=== PATIENT | male | born 1985 | race Caucasian/White ===

== ENCOUNTER 2017-03-19 07:00 | Day surgery (SDC) | payer OTHER ==
[2017-03-19] MEDS ORDERED: ceFAZolin 2 GM/50 ML 50 ML IV ONE (07:31)
[2017-03-19] MEDS ORDERED: LACTATED RINGERS 1,000 ML IV ONE ×2 (07:37→09:56)
[2017-03-19] MEDS ORDERED: LIDOCAINE 1%-EPI 1:100000 30 ML MDV SUBQ ONE ×2 (09:02)
[2017-03-19] MEDS ORDERED: BUPIVACAINE 0.5% PF 30 ML VIAL SUBQ ONE ×2 (09:02)
[2017-03-19] MEDS ORDERED: PHENYLEPHRINE 50 MG/5 ML VIAL IV ONE (09:32)
[2017-03-19] MEDS ORDERED: DEXAMETHASONE 4 MG/ML VIAL IVP ONE (09:32)
[2017-03-19] MEDS ORDERED: HYDROmorphone 1 MG/ML SYRINGE IVP ONE (09:32)
[2017-03-19] MEDS ORDERED: ONDANSETRON 4 MG/2 ML VIAL IVP ONE (09:32)
[2017-03-19] MEDS ORDERED: KETOROLAC 30 MG/ML VIAL IVP ONE (09:32)
[2017-03-19] MEDS ORDERED: ACETAMINOPHEN 1,000 MG/100 ML VIAL IV ONE (09:32)
[2017-03-19] MEDS ORDERED: PROPOFOL 200 MG/20 ML VIAL IVP ONE (09:32)
[2017-03-19] MEDS ORDERED: NEOSTIGMINE 1 MG/1 ML 10 ML MDV IVP ONE (09:32)
[2017-03-19] MEDS ORDERED: MIDAZOLAM 2 MG/2 ML VIAL IVP ONE (09:32)
[2017-03-19] MEDS ORDERED: ePHEDrine 50 MG/ML AMP IVP ONE (09:32)
[2017-03-19] MEDS ORDERED: ROCURONIUM 50 MG/5 ML VIAL IVP ONE (09:32)
[2017-03-19] MEDS ORDERED: GLYCOPYRROLATE 1 MG/5 ML VIAL IVP ONE (09:32)
[2017-03-19] MEDS ORDERED: LIDOCAINE-MPF 2% 5 ML VIAL IM ONE (09:32)
[2017-03-19] MEDS ORDERED: HYDROmorphone 1 MG/ML SYRINGE ONE (11:52)
[2017-03-19] MEDS ORDERED: ONDANSETRON 4 MG/2 ML VIAL ONE (12:23)
[2017-03-19] MEDS: fentaNYL 100 MCG/2 ML VIAL ONE ×3 (12:25→13:37)
[2017-03-19] MEDS ORDERED: oxyCOD/ACETAMIN 5 MG/325 MG TABLET PO ONE (13:34)
== END 2017-03-19 07:01 | disposition home or self-care (01) ==
PROC: 0WUF0JZ Supplement Abdominal Wall with Synthetic Substitute, Open Approach (ICD-10-PCS; 2017-03-19)
PROC: 0YUA4JZ Supplement Bilateral Inguinal Region with Synthetic Substitute, Percutaneous Endoscopic Approach (ICD-10-PCS; principal; 2017-03-19 08:15)
DX: K42.0 Umbilical hernia with obstruction, without gangrene (principal); K40.20 Bilateral inguinal hernia, without obstruction or gangrene, not specified as recurrent; Z87.891 Personal history of nicotine dependence; Z82.49 Family history of ischemic heart disease and other diseases of the circulatory system; Z81.8 Family history of other mental and behavioral disorders
CPT/HCPCS: 49587; 49650; A9270; C1781; J0131; J0690; J1170; J7120